=== PATIENT | male | born 1955 | race Caucasian/White ===

== ENCOUNTER 2018-06-19 11:13 | Emergency (ER) | payer OTHER ==
[~2018-06-19] VITALS: Ht 170.2 cm; Wt 113.4 kg
[~2018-06-19 11:13] MED LIST: ALEVE220 M1 PO; ANTACID CALCIU215 MG PO; ASPIRIN EC81 M1 PO; BRILINTA90 MG PO; CARVEDILOL3.125 MG PO; COLACE 100 MG100 MG PO; CRESTOR5 MG PO; DEPO-TESTO100 MG/1 M IM; FERREX 150150 MG PO; GLUCOSAMINE CH1 EACH PO; HUMALOG100 UNIT/1 SQ; HUMULIN N100 UNIT/1 SQ; HYDROCODON-ACE1 EA11 PO; K-DUR 20 MEQ T20 MEQ PO; LASIX 40 MG TAB40 M2 PO; LISINOPRIL2.5 MG PO; MIRALAX255 GM PO; MOM PO; MULTIVITAMINS PO; NITROGLYCERIN0.4 MG SUBLING; NOVOLIN N100 UNIT/3 SUBQ; NOVOLOG100 UNIT/1 SUBQ; PEPCID20 MG PO; PHISOHEX148 ML TP; PLAVIX 75 MG TA75 M1 PO; SENOKOT-S1 TA1 PO; VIAGRA100 MG PO
[2018-06-19] MEDS ORDERED: UNICOMPLEX M TA1 TA1 PO (11:21)
[2018-06-19] MEDS ORDERED: KEFLEX500 M1 PO (13:26)
[2018-06-19] MEDS ORDERED: IBUPROFEN 800800 M1 PO (13:31)
[2018-06-19 13:56] VITALS: BP 124/79
== END 2018-06-19 13:56 | disposition home or self-care (01) ==
LOC: M.ERS 11:13
DX: S01.01XA Laceration without foreign body of scalp, initial encounter (principal); I10 Essential (primary) hypertension; E78.5 Hyperlipidemia, unspecified; G47.30 Sleep apnea, unspecified; Z98.890 Other specified postprocedural states; W00.0XXA Fall on same level due to ice and snow, initial encounter; Y93.89 Activity, other specified; Y92.89 Other specified places as the place of occurrence of the external cause; Y99.8 Other external cause status

== ENCOUNTER 2018-06-24 11:43 | Emergency (ER) | payer OTHER ==
[~2018-06-24] VITALS: Ht 170.2 cm; Wt 113.4 kg
[~2018-06-24 11:43] MED LIST changes: +IBUPROFEN 800800 M1 PO; +KEFLEX500 M1 PO; +UNICOMPLEX M TA1 TA1 PO
[2018-06-24 12:30] VITALS: BP 130/74
== END 2018-06-24 12:36 | disposition home or self-care (01) ==
LOC: M.ERS 11:43
DX: S01.01XD Laceration without foreign body of scalp, subsequent encounter (principal); G47.30 Sleep apnea, unspecified; E78.5 Hyperlipidemia, unspecified; I10 Essential (primary) hypertension; Z98.890 Other specified postprocedural states; X58.XXXD Exposure to other specified factors, subsequent encounter